=== PATIENT | male | born 1955 | race Caucasian/White ===

== ENCOUNTER 2020-03-12 11:44 | Outpatient (CLI) | payer BC, SELFPAY ==
--- NOTE | 2020-03-12 12:32 | ECG_ITS ---
Measurements Intervals [place] Rate: 58 P: 24 MI: 160 QRS: -11 QRSD: 91 T: 43 QT: 383 QTc: 378 Interpretive Statements SINUS BRADYCARDIA DELAYED PRECORDIAL R/S TRANSITION BASELINE ARTIFACT- I, III, AVL BORDERLINE ECG Electronically Signed On 03-12-2020 13:05:01 [employer] MATERIAL[employer] ENGINEER by Shahab Nur D.O.
[2020-03-12 12:54] LABS: Basophils Absolute Auto 0.1 K/mm3 (0.0-0.1); Basophils Percent Auto 1.1 % (0.2-1.2); Eosinophils Absolute Auto 0.2 K/mm3 (0-0.3); Eosinophils Percent Auto 2.8 % (0-4.4); Hematocrit 41.8 % (42.0-52.0); Hemoglobin 13.6 g/dL (14.0-18.0); Immature Granulocyte Absolute 0.02 K/mm3 (0.00-0.031); Immature Granulocyte Percent A 0.4 % (0-0.5); Lymphocytes Absolute Auto 1.51 K/mm3 (0.9-3.2); Lymphocytes Percent Auto 28.3 % (18.3-44.2); Mean Corpuscular HGB Conc 32.5 g/dl (32-36); Mean Corpuscular Hemoglobin 29.2 pg (26-34); Mean Corpuscular Volume 89.9 fl (80-100); Mean Platelet Volume 8.8 fl (7.4-10.4); Monocytes Absolute Auto 0.6 K/mm3 (0.1-0.6); Neutrophils Percent Auto 56.4 % (45.5-73.1); Platelet Count Result 222 k/mm3 (150-375); Red Blood Count 4.65 M/mm3 (4.6-6.20); White Blood Count 5.3 K/mm3 (4.5-10.0)
[2020-03-12 13:07] LABS: Urine Cotinine NEGATIVE
[2020-03-12 13:10] LABS: Hemoglobin A1C 5.5 % (<5.7)
[2020-03-12 13:13] LABS: Albumin Level 4.6 g/dL (3.5-5.1); Estimated Glomerular Filt Rate > 60; Glucose 87 mg/dL (75-110)
== END 2020-03-12 11:45 | disposition home or self-care (01) ==
LOC: ANHSURGERY 11:47
PROVIDERS: PCP Family Medicine; Visit Provider Orthopaedic Surgery
DX: M17.12 Unilateral primary osteoarthritis, left knee (principal); Z01.818 Encounter for other preprocedural examination; R94.31 Abnormal electrocardiogram [ECG] [EKG]
CPT/HCPCS: 80307; 82040; 82565; 82947; 83036; 85025; 86850; 86900; 86901; 93005

== ENCOUNTER 2020-06-14 13:45 | Outpatient (CLI) | payer OTHER, SELFPAY ==
[2020-06-14 14:56] LABS: Basophils Percent Auto 0.7 % (0.2-1.2); Eosinophils Absolute Auto 0.1 K/mm3 (0-0.3); Eosinophils Percent Auto 2.3 % (0-4.4); Hematocrit 44.7 % (42.0-52.0); Hemoglobin 14.9 g/dL (14.0-18.0); Immature Granulocyte Absolute 0.01 K/mm3 (0.00-0.031); Immature Granulocyte Percent A 0.2 % (0-0.5); Lymphocytes Absolute Auto 1.49 K/mm3 (0.9-3.2); Lymphocytes Percent Auto 26.8 % (18.3-44.2); Mean Corpuscular HGB Conc 33.3 g/dl (32-36); Mean Corpuscular Hemoglobin 29.3 pg (26-34); Mean Corpuscular Volume 87.8 fl (80-100); Monocytes Absolute Auto 0.7 K/mm3 (0.1-0.6); Monocytes Percent Auto 12.6 % (2.6-8.5); Neutrophils Absolute Auto 3.2 K/mm3 (1.3-6.7); Neutrophils Percent Auto 57.4 % (45.5-73.1); Platelet Count Result 229 k/mm3 (150-375); Red Blood Count 5.09 M/mm3 (4.6-6.20); White Blood Count 5.6 K/mm3 (4.5-10.0)
[2020-06-14 15:00] LABS: Urine Cotinine NEGATIVE
[2020-06-14 15:05] LABS: Albumin Level 4.7 g/dL (3.5-5.1); Estimated Glomerular Filt Rate > 60; Glucose 93 mg/dL (75-110)
[2020-06-14 15:08] LABS: Hemoglobin A1C 5.7 % (<5.7)
== END 2020-06-14 13:46 | disposition home or self-care (01) ==
PROVIDERS: Family Provider Family Medicine; PCP Internal Medicine; Visit Provider Orthopaedic Surgery
DX: Z01.818 Encounter for other preprocedural examination (principal); M17.12 Unilateral primary osteoarthritis, left knee
CPT/HCPCS: 80307; 82040; 82565; 82947; 83036; 85025; 86850; 86900; 86901

== ENCOUNTER → 2020-06-19 01:05 | Outpatient (CLI) | payer OTHER, SELFPAY ==
[2020-06-19 19:48] LABS: SARS-CoV-2 RNA PCR Negative
== END ==
PROVIDERS: Family Provider Family Medicine; PCP Internal Medicine; Visit Provider Orthopaedic Surgery
DX: Z01.812 Encounter for preprocedural laboratory examination (principal); Z20.822 Contact with and (suspected) exposure to COVID-19
CPT/HCPCS: C9803; U0003; U0005

== ENCOUNTER 2020-06-23 00:45 | Day surgery (SDC) | payer OTHER, SELFPAY ==
[2020-03-12 12:14] VITALS: BP 144/88; PULSE 68; RESP 20; TEMP 36.8; O2SAT 99; BMI 36.2
[2020-06-14 13:57] VITALS: BMI 35.9
[2020-06-14 14:33] VITALS: BP 140/88; PULSE 70; RESP 16; TEMP 36.9; O2SAT 100; BMI 35.9
--- NOTE | 2020-06-21 09:23 | PM.IMHP ---
H&P: HPI History of Present Illness Date/Time: 06/21/20 09:23 Chief Complaint: Left knee pain due to advanced primary osteoarthritis Narrative: Franki Gusman is a 65 year old male who presents with a chronic ongoing history of left knee pain. Patient has aching pain with ambulation he has started pain rest pain and night pain. This is due to primary osteoarthritis advanced nature. The patient does have worsening deformity over time with varus deformity, he also notes decreasing range of motion aching and pain worse with activity and somewhat relieved by rest. despite conservative measures including cortisone therapy and anti-inflammatories the patient's symptoms continue. He cannot stand or walk for long periods and is tired of living with his knee. X-rays show advanced primary osteoarthritis left knee joint. The patient has discussed further treatment options in detail with Dr. Molina, he would now like to proceed with a left total knee arthroplasty. Review of Systems Review of Systems: All systems reviewed & are unremarkable except as noted in HPI and below PMFSH Social History Social History Smoking packs per day: 1 Smoking cigarettes per day: 20.0 Years smoked: 16 Smoking pack-years: 16.00 Smoking status: Former smoker Tobacco type: cigarettes Smoking end date: 05/07/85 Additional smoking assessment comments: DENIES ANY FORM OF TOBACCO USE Alcohol intake: current Drinks per week: 2 Substance use: never Spiritual care concerns: No Meds Home Medications and Allergies Home Medications Medication Instructions Recorded Confirmed Type atorvastatin 20 mg PO HS 03/12/20 06/14/20 History carboxymethylcellulose sodium 1 drp OPHTHALMIC (EYE) 4-6XD PRN 03/12/20 06/14/20 History [Refresh Liquigel] cinnamon bark [Cinnamon] 2,000 mg PO DAILY 03/12/20 06/14/20 History coenzyme Q10 [Ultra CoQ10] 100 mg PO DAILY 03/12/20 06/14/20 History diclofenac sodium 75 mg PO BID 03/12/20 06/14/20 History fluorometholone 1 drp OPHTHALMIC (EYE) HS 03/12/20 06/14/20 History latanoprost 1 drp OPHTHALMIC (EYE) HS 03/12/20 06/14/20 History losartan 50 mg PO DAILY 03/12/20 06/14/20 History omega-3 fatty acids-vitamin E 1 cap DAILY 03/12/20 06/14/20 History [Fish Oil] timolol maleate 1 drp OPHTHALMIC (EYE) QAM 03/12/20 06/14/20 History verapamil 90 mg PO Q12H 03/12/20 06/14/20 History Allergies Allergy/AdvReac Type Severity Reaction Status Date / Time amoxicillin [From Augmentin] AdvReac Diarrhea Verified 06/14/20 13:56 clavulanic acid AdvReac Diarrhea Verified 06/14/20 13:56 [From Augmentin] clindamycin AdvReac Diarrhea Verified 06/14/20 13:56 Exam Narrative: Exam Narrative: On exam the patient is noted be a well-developed well-nourished male in no acute distress. He is alert and oriented x3. Normal mood and affect. Hearing and vision intact. HEENT exam within normal limits. Heart regular rate rhythm. Lungs clear auscultation. Abdomen benign. Extremities show the patient's left knee to be painful with manipulation and range of motion. He has a varus deformity with crepitation through the arc of motion. Mild effusion swelling motion is 5 to about 110?. He has tenderness on the joint lines and walks with a limp because of his bilateral knee pain. Neurovascular patient is intact. Strength is 5 5. Hips move well with negative Stinchfield negative MARIA DOLORES. Skin is intact without rashes or lesions. Central nervous system exam within normal limits. Assessment and Plan Additional Plan The patient has severe primary osteoarthritis left knee joint. The patient has discussed risks benefits limitations and alternatives of surgery in great detail with Dr. Molina and has failed conservative measures. The patient would now like to proceed with a left total knee arthroplasty. The patient is scheduled to undergo surgery 06/23/2020 at [facility] w
--- NOTE | 2020-06-22 12:32 | WPDANESEPPF ---
Anes - Initial Pre Proc Eval Procedure: Operation Date: 06/23/20 07:30 Proposed Procedures p Left Total Knee Arthroplasty - Benito Molina MD Date/Time: 06/22/20 12:32 Surgeon: Benito Molina MD Pre Op Diagnosis: OA left knee Patient Data Age: 65 Gender: M Height: 1.7 m Weight: 104.1 kg Last Vital Signs Temp 36.9 C 06/14/20 14:33 Pulse 70 06/14/20 14:33 Resp 16 06/14/20 14:33 BP 140/88 06/14/20 14:33 Pulse Ox 100 06/14/20 14:33 Allergies Allergy/AdvReac Type Severity Reaction Status Date / Time amoxicillin [From Augmentin] AdvReac Mild Diarrhea Verified 06/23/20 06:38 clavulanic acid AdvReac Mild Diarrhea Verified 06/23/20 06:38 [From Augmentin] clindamycin AdvReac Mild Diarrhea Verified 06/23/20 06:38 Home Medications Medication Instructions Recorded Confirmed Type atorvastatin 20 mg PO HS 03/12/20 06/14/20 History carboxymethylcellulose sodium 1 drp OPHTHALMIC (EYE) 4-6XD PRN 03/12/20 06/14/20 History [Refresh Liquigel] cinnamon bark [Cinnamon] 2,000 mg PO DAILY 03/12/20 06/14/20 History coenzyme Q10 [Ultra CoQ10] 100 mg PO DAILY 03/12/20 06/14/20 History diclofenac sodium 75 mg PO BID 03/12/20 06/14/20 History fluorometholone 1 drp OPHTHALMIC (EYE) HS 03/12/20 06/14/20 History latanoprost 1 drp OPHTHALMIC (EYE) HS 03/12/20 06/14/20 History losartan 50 mg PO DAILY 03/12/20 06/14/20 History omega-3 fatty acids-vitamin E 1 cap DAILY 03/12/20 06/14/20 History [Fish Oil] timolol maleate 1 drp OPHTHALMIC (EYE) QAM 03/12/20 06/14/20 History verapamil 90 mg PO Q12H 03/12/20 06/14/20 History Patient hx anesthesia problems: none Family hx anesthesia problems: none PMFSH Past Medical History Medical History (Updated 06/22/20 @ 12:33 by Jonatan Gaines DO) Back pain Glaucoma Hyperlipidemia Hypertension Social History Social History Smoking packs per day: 1 Smoking cigarettes per day: 20.0 Years smoked: 16 Smoking pack-years: 16.00 Smoking status: Former smoker Tobacco type: cigarettes Smoking end date: 05/07/85 Additional smoking assessment comments: DENIES ANY FORM OF TOBACCO USE Alcohol intake: current Drinks per week: 2 Substance use: never Living arrangements: with family Spiritual care concerns: No Anes - Eval Final PreProcedure Day of Procedure 06/22/20 12:32 Patient weight: obese Heart: regular rate and rhythm Lungs: clear to auscultation and normal air movement Airway: Mallampati scale class II Neurological: alert and oriented Last oral intake: >/= 8 hours ASA classification: III Emergent: no Anesthetic plan: proceed Anesthesia type and monitoring: general LMA and standard monitoring Informed Consent: The patient's anesthetic plan and its attendant risks and benefits were discussed with the patient/family/POA. Questions were solicited and answers provided to the satisfaction of the patient/family/POA.
--- NOTE | 2020-06-22 12:33 | WPDANESPNB ---
Anes - Peripheral Nerve Block Date/Time: 06/22/20 12:33 I have discussed with the patient/family/POA the placement of a peripheral nerve block for post-operative pain management, including associated risks, benefits, complications, and side effects. Alternative methods of post-operative analgesia were detailed. Questions were solicited and answers provided to the satisfaction of the patient/family/POA. Time-Out: A pre-procedural Time-Out was completed immediately before starting the procedure and confirmed: Patient Identification, Site, Procedure, Patient Position and the Availability of Requisite Equipment. Clinical Indications: Acute post-operative pain management requested by the operative surgeon. Nerve Block Insertion Note Anes-nerve block: adductor canal left Patient position: supine Skin prep: chlorhexidine Needle: 22 gauge, stimulating, insulated echogenic needle. Needle length: 80 mm Technique: ultrasound Injectate: bupivacaine 0.5% with epi 5 mcg/ml (30cc) Observations: tolerated well Complications: none Procedure start time:: 724 Procedure end time:: 727
[2020-06-23] VITALS (12 sets, daily range): BP systolic 96–152; BP diastolic 62–106; PULSE 57–68; RESP 12–20; TEMP 36.1–36.7; O2SAT 94–100
--- NOTE | ~2020-06-23 | XR_ITS ---
EXAMINATION: XR knee LT 2V DATE: 06/23/2020 09:43 INDICATION: Postoperative evaluation following left total knee arthroplasty. TECHNIQUE: Anteroposterior and lateral views of the left knee were obtained. COMPARISON: None. FINDINGS: Left total knee arthroplasty with patellar resurfacing appears well seated and in near anatomic align ment. No fractures identified. Skin herminio and expected postoperative subcutaneous and intra-artic ular gas. IMPRESSION: 1. Left total knee arthroplasty, negative for postoperative purposes. Reviewed, dictated and finalized at location A. ET HEATER OPERATOR
[2020-06-23] MEDS: ACETAMINOPHEN 500 MG TABLET 1000 MG PO (06:19)
[2020-06-23] MEDS: LACTATED RINGERS 1,000 ML 30 ML IV CONT ×2 (06:30→09:35)
[2020-06-23] MEDS: TRANEXAMIC ACID 1,000MG/ISO100 1,000 MG/100 ML BAG 200 MG IVPB (06:32)
--- NOTE | 2020-06-23 06:56 | SUR.PREOP ---
0620-PT TO BR TO VOID.
--- NOTE | 2020-06-23 07:22 | WPDHPUPDATE1 ---
History and Physical Update Update Date/Time: 06/23/20 07:22 History and Physical has been reviewed, including an updated exam of the patient. There are NO changes in the patient's condition. Risks, benefits, and alternatives have been discussed and questions answered. Patient agrees to proceed with procedure.
[2020-06-23] MEDS: ceFAZolin 2 GM/D5W 50 ML 2 GM/50 ML BAG IVPB ×3 (07:32→23:05)
--- NOTE | 2020-06-23 09:03 | PM.PROC ---
Procedure Note - Detailed Date of procedure: 06/23/20 Pre-op diagnosis: OA left knee Post-op diagnosis: same Procedure performed: [Right] total knee arthroplasty Description of procedure: The patient was brought to the operating room. General anesthetic was administered. Placed on the operating table and sterilely prepped and draped in usual manner. A longitudinal incision was made. Tourniquet inflated to 300 mmHg for a total of [time] minutes. Dissection carried down to the fascia. Medial parapatellar incision was made and the patella subluxated laterally. Patella cut from [25] to [25] mm and sized for a [37] mm button. The tibia cut perpendicular to the long axis and femur cut in 5 degrees of valgus, a [67.5] femur trialed. [75] tibia was felt to fit the best. The soft tissue balanced, hemostasis obtained. All [address], [75] tibia, [67.5] Posterior Stabilized Femur, [37] mm patella, and [12] mm Stabilized Plus poly. Motion was 0-125 degrees with good stablility and flexion and extension. The wound was closed with #2 vicryl, 2-0 Vicryl and herminio. Anesthesia: GETA Surgeon: Benito Molina MD Risk Control Director: Marvin Byrd Estimated blood loss (mL): 200 Drains: No Packing: No Pathology: none sent Complications: No immediate complications Condition: stable Disposition: PACU Findings: arthritis
[2020-06-23] MEDS: fentaNYL CITRATE INJ (*CRX) 100 MCG/2 ML VIAL 25 MCG IV PUSH ×3 (09:54→10:58)
--- NOTE | 2020-06-23 10:19 | SUR.PHASEI ---
1020 sbar faxed floor notified
--- NOTE | 2020-06-23 11:25 | ADMGEN ---
This patient, Franki Gusman, was admitted to 2 Medical Room 260-01. Patient/family oriented to hospital policies and general routines including ID bracelet, bed and alarms, visiting hours, pain management, procedures, bathroom and other care routines, personal items, smoking policy, room service/diet, and visiting hours. Information on how to activate the Rapid Response Team has been discussed. Patient/Family are encouraged to report perceived risks to care and to ask questions if they do not understand what they are told or what they should do.
[2020-06-23] MEDS: SODIUM CHLORIDE 0.9% IV 1,000 ML 125 ML IV CONT (11:30)
[2020-06-23] MEDS: DOCUSATE SODIUM 100 MG CAPSULE PO ×2 (11:40→17:30)
[2020-06-23] MEDS: LOSARTAN POTASSIUM 50 MG TABLET PO (12:42)
[2020-06-23] MEDS: HYDROcodone/acetaminophen (*CRX) 7.5-325 MG TABLET 1 TAB PO ×3 (12:45→21:57)
--- NOTE | 2020-06-23 13:56 | PM.IMCN ---
Assessment and Plan Assessment and plan (1) Status post total right knee replacement: Code(s): Z96.651 - Presence of right artificial knee joint Status: Acute Assessment and Plan: Franki Gusman is a 65 year old male with history of hypertension and hyperlipidemia status post right knee total arthroplasty today, patient states the pain in the right knee is better was able to ambulate with a walker and participated in physical therapy, we have been consulted to manage patient high blood pressure and hyperlipidemia, currently patient has no complaint chest pain shortness of breath palpitation fever or chills. (2) Hypertension: Code(s): I10 - Essential (primary) hypertension Status: Inactive Assessment and Plan: We have resumed patient's home medication patient blood pressure is close to target has no complaint of chest pain (3) Hyperlipidemia: Code(s): E78.5 - Hyperlipidemia, unspecified Status: Inactive Assessment and Plan: Will continue home regimen HPI Data of Consult Consult date: 06/23/20 Requesting Physician: Benito Molina MD Primary Care Provider: Imelda Stephenson, DO Consult Narrative Narrative: Franki Gusman is a 65 year old male with history of hypertension and hyperlipidemia status post right knee total arthroplasty today, patient states the pain in the right knee is better was able to ambulate with a walker and participated in physical therapy, we have been consulted to manage patient high blood pressure and hyperlipidemia, currently patient has no complaint chest pain shortness of breath palpitation fever or chills. Review of Systems Review of Systems: All systems reviewed & are unremarkable except as noted in HPI and below PMFSH Past Medical History Medical History (Updated 06/23/20 @ 14:00 by Rojas Lawson MD) Back pain Glaucoma Hyperlipidemia Hypertension Social History Social History Smoking packs per day: 1 Smoking cigarettes per day: 20.0 Years smoked: 16 Smoking pack-years: 16.00 Smoking status: Former smoker Tobacco type: cigarettes Alcohol intake: current Drinks per week: 2 Substance use: never Living arrangements: with family Gender identity (if verbalized by the patient): Male Sexual Orientation (if Verbalized by the Patient): Straight or Heterosexual Spiritual care concerns: No Meds Home Medications and Allergies Home Medications Medication Instructions Recorded Confirmed Type atorvastatin 20 mg PO HS 03/12/20 06/23/20 History carboxymethylcellulose sodium 1 drp OPHTHALMIC (EYE) 4-6XD PRN 03/12/20 06/23/20 History [Refresh Liquigel] cinnamon bark [Cinnamon] 2,000 mg PO DAILY 03/12/20 06/23/20 History coenzyme Q10 [Ultra CoQ10] 100 mg PO DAILY 03/12/20 06/23/20 History diclofenac sodium 75 mg PO BID 03/12/20 06/23/20 History fluorometholone 1 drp OPHTHALMIC (EYE) HS 03/12/20 06/23/20 History latanoprost 1 drp OPHTHALMIC (EYE) HS 03/12/20 06/23/20 History losartan 50 mg PO DAILY 03/12/20 06/23/20 History omega-3 fatty acids-vitamin E 1 cap DAILY 03/12/20 06/23/20 History [Fish Oil] timolol maleate 1 drp OPHTHALMIC (EYE) QAM 03/12/20 06/23/20 History verapamil 90 mg PO Q12H 03/12/20 06/23/20 History Allergies Allergy/AdvReac Type Severity Reaction Status Date / Time amoxicillin [From Augmentin] AdvReac Mild Diarrhea Verified 06/23/20 11:37 clavulanic acid AdvReac Mild Diarrhea Verified 06/23/20 11:37 [From Augmentin] clindamycin AdvReac Mild Diarrhea Verified 06/23/20 11:37 Vital Signs Vital Signs - 24 hr 06/23/20 06:04 06/23/20 09:40 06/23/20 09:55 Temperature 96.9 F L 98.1 F Pulse Rate 68 65 63 Respiratory Rate 20 14 20 Blood Pressure 145/90 H 152/106 H 102/90 Pulse Oximetry 99 99 100 06/23/20 10:10 06/23/20 10:25 06/23/20 10:40 Temperature Pulse Rate 57 L 67 60 Respiratory Rate 12 14 15 Blood Pressure 1
[2020-06-23] MEDS: RIVAROXABAN 10 MG TABLET PO (17:30)
[2020-06-23] MEDS: FLUOROMETHOLONE 0.1% OP SUSP 5 ML BTL 1 DROP EACH EYE (21:57)
[2020-06-23] MEDS: LATANOPROST 0.005% OP SOLN 2.5 ML BTL 1 DROP EACH EYE (21:58)
[2020-06-23] MEDS: ATORVASTATIN 20 MG TABLET PO (21:59)
[2020-06-23] MEDS: oxyCODONE/ACETAMINOPHEN (*CRX) 5-325 MG TABLET 1 TABLET PO (23:12)
[2020-06-24] MEDS: HYDROcodone/acetaminophen (*CRX) 7.5-325 MG TABLET 1 TAB PO ×4 (01:55→13:07)
[2020-06-24 02:00] VITALS: BP 121/76; PULSE 68; RESP 18; TEMP 36.2; O2SAT 98
[2020-06-24 05:07] VITALS: BP 137/82; PULSE 75; RESP 18; TEMP 36.1; O2SAT 96
[2020-06-24 05:48] LABS: Basophils Percent Auto 0.3 % (0.2-1.2); Eosinophils Absolute Auto 0.1 K/mm3 (0-0.3); Eosinophils Percent Auto 0.4 % (0-4.4); Hematocrit 35.5 % (42.0-52.0); Hemoglobin 11.5 g/dL (14.0-18.0); Immature Granulocyte Absolute 0.05 K/mm3 (0.00-0.031); Immature Granulocyte Percent A 0.4 % (0-0.5); Lymphocytes Percent Auto 16.6 % (18.3-44.2); Mean Corpuscular HGB Conc 32.4 g/dl (32-36); Mean Corpuscular Hemoglobin 28.6 pg (26-34); Mean Corpuscular Volume 88.3 fl (80-100); Mean Platelet Volume 9.1 fl (7.4-10.4); Monocytes Absolute Auto 1.3 K/mm3 (0.1-0.6); Monocytes Percent Auto 11.2 % (2.6-8.5); Neutrophils Absolute Auto 8.2 K/mm3 (1.3-6.7); Neutrophils Percent Auto 71.1 % (45.5-73.1); Platelet Count Result 199 k/mm3 (150-375); Red Blood Count 4.02 M/mm3 (4.6-6.20); Red Cell Distribution Width 14.2 % (11.5-14.5); White Blood Count 11.5 K/mm3 (4.5-10.0)
[2020-06-24 06:05] LABS: Anion Gap 7 mmol/L (8-16); Blood Urea Nitrogen 18 mg/dL (9-20); Calcium 8.5 mg/dL (8.4-10.2); Carbon Dioxide 26 mmol/L (22-30); Chloride 105 mmol/L (98-107); Estimated CRCL calculation 91 ml/min; Estimated Glomerular Filt Rate > 60; Glucose 107 mg/dL (75-110); Sodium 138 mmol/L (137-145)
[2020-06-24] MEDS: ceFAZolin 2 GM/D5W 50 ML 2 GM/50 ML BAG IVPB (06:35)
[2020-06-24] MEDS: oxyCODONE/ACETAMINOPHEN (*CRX) 5-325 MG TABLET 2 TABLET PO (06:45)
--- NOTE | 2020-06-24 07:50 | WPDANESPN ---
Anes - Prog Note Post-Op Date/Time: 06/24/20 07:50 Cardiovascular status: normal Respiratory status: normal Airway patency: baseline Mental status: baseline Post-Op hydration status: normal Vital Signs: Last Vital Signs Temp 36.1 C L 06/24/20 05:07 Pulse 75 06/24/20 05:07 Resp 18 06/24/20 05:07 BP 137/82 06/24/20 05:07 Pulse Ox 96 06/24/20 05:07 Pain Score (VAS): 0 I/O: Intake & Output 06/23/20 06/23/20 06/24/20 15:59 23:59 07:59 Intake Total 1240 1290 500 Output Total 1700 1550 Balance 1240 -410 -1050 Laboratory Tests 06/24/20 05:10 06/24/20 05:10 06/24/20 06/24/20 05:10 05:10 WBC 11.5 H RBC 4.02 L Hgb 11.5 L D Hct 35.5 L MCV 88.3 MCH 28.6 MCHC 32.4 RDW 14.2 Plt Count 199 MPV 9.1 Immature Gran % (Auto) 0.4 Neut % (Auto) 71.1 Lymph % (Auto) 16.6 L [place] % (Auto) 11.2 H Eos % (Auto) 0.4 Baso % (Auto) 0.3 Lymph # (Auto) 1.90 [place] # (Auto) 1.3 H Eos # (Auto) 0.1 Baso # (Auto) 0.0 Abs Immat Gran (auto) 0.05 H Absolute Neuts (auto) 8.2 H Absolute Nucleated RBC 0.0 Nucleated RBC % 0.0 Sodium 138 Potassium 4.0 Chloride 105 Carbon Dioxide 26 Anion Gap 7 L BUN 18 Creatinine 0.80 Estim Creat Clear Calc 91 Estimated GFR > 60 Glucose 107 Calcium 8.5 Post-procedural complaints: none Patient Feedback: Patient satisfied with anesthetic care.
[2020-06-24] MEDS: LOSARTAN POTASSIUM 50 MG TABLET PO (09:24)
[2020-06-24] MEDS: TIMOLOL MALEATE 0.5% OP SOLN 5 ML BOTTLE 1 DROP EACH EYE (09:25)
[2020-06-24] MEDS: DOCUSATE SODIUM 100 MG CAPSULE PO (09:25)
[2020-06-24] MEDS: CALCIUM CARBONATE (TUMS) 500 MG (200 MG ELEMENTAL) PO (09:39)
[2020-06-24 10:00] VITALS: BP 115/79; PULSE 83; RESP 20; TEMP 36.6; O2SAT 99
--- NOTE | 2020-06-24 11:25 | PC.NURSE ---
On 06/24/20, the student, [Cherrie Gonzalez ], provided care and [facility]. I have reviewed the student's documentation and agree with the findings.
--- NOTE | 2020-06-24 12:04 | PM.PNORT ---
Progress Note: A&P Additional Plan Patient status post left total knee arthroplasty postop day 1, doing well patient is deemed stable for discharge home patient voiced understanding agrees above plan. See discharge instructions. Subjective Subjective Date/Time Seen: 06/24/20 12:04 patient is doing well postop day 1 status post left total knee arthroplasty, pain is well controlled any participated in physical therapy well. Vital signs are stable he is afebrile neurovascular is intact wound is clean and dry calves are benign. The patient is now deemed stable for discharge home. Review of Systems Review of Systems: All systems reviewed & are unremarkable except as noted in HPI and below Exam Narrative: Exam Narrative: Vital signs stable, afebrile, neurovascular the patient is intact, wound is clean and dry left knee. Calves are benign. Patient tolerating physical therapy well. Objective Data Vital Signs Vital Signs: Vital Signs - 24 hr 06/23/20 14:00 06/23/20 18:00 06/23/20 21:17 Temperature 36.2 C L 36.2 C L Pulse Rate 62 62 Respiratory Rate 20 20 Blood Pressure 114/75 96/63 L Pulse Oximetry 95 97 97 06/23/20 22:28 06/24/20 02:00 06/24/20 05:07 Temperature 36.2 C L 36.2 C L 36.1 C L Pulse Rate 65 68 75 Respiratory Rate 16 18 18 Blood Pressure 131/62 121/76 137/82 Pulse Oximetry 97 98 96 06/24/20 10:00 Temperature 36.6 C Pulse Rate 83 Respiratory Rate 20 Blood Pressure 115/79 Pulse Oximetry 99 Intake/Output Intake/Output: Intake & Output 06/21/20 06/22/20 06/23/20 06/24/20 23:59 23:59 23:59 23:59 Intake Total 2630 740 Output Total 1700 1550 Balance 930 -810 Meds/Results Medications: Active Medications Generic Name Dose Route Start Last Admin Trade Name Freq PRN Reason Stop Dose Admin Hydrocodone Bitart/Acetaminophen 1 tab 06/23/20 13:00 06/24/20 09:24 Hydrocodone/Acetaminophen (*Crx) 7.5-325 Mg Tablet PO 1 tab Q4HR LEO Administration Artificial Tears 1 drop 06/23/20 07:25 Artificial Tears Op Soln 15 Ml Bottle EACH EYE Q4H PRN Dry Eyes Atorvastatin Calcium 20 mg 06/23/20 21:00 06/23/20 21:59 Atorvastatin 20 Mg Tablet PO 20 mg HS LEO Administration Calcium Carbonate 200 mg 06/24/20 09:08 06/24/20 09:39 Calcium Carbonate (Tums) 500 Mg (200 Mg Elemental) PO 200 mg Q6H PRN Administration Indigestion Cyclobenzaprine HCl 10 mg 06/23/20 07:22 Cyclobenzaprine Hcl 10 Mg Tablet PO Q8H PRN Spasms Diphenhydramine HCl 25 mg 06/23/20 07:22 Diphenhydramine Hcl Inj 50 Mg/Ml Vial IV PUSH Q6H PRN Itching Docusate Sodium 100 mg 06/23/20 09:00 06/24/20 09:25 Docusate Sodium 100 Mg Capsule PO 100 mg BID LEO Administration Fluorometholone 1 drop 06/23/20 21:00 06/23/20 21:57 Fluorometholone 0.1% Op Susp 5 Ml Btl EACH EYE 1 drop HS LEO Administration Latanoprost 1 drop 06/23/20 21:00 06/23/20 21:58 Latanoprost 0.005% Op Soln 2.5 Ml Btl EACH EYE 1 drop HS LEO Administration Losartan Potassium 50 mg 06/23/20 09:00 06/24/20 09:24 Losartan Potassium 50 Mg Tablet PO 50 mg DAILY LEO Administration Naloxone HCl 0.1 mg 06/23/20 07:22 Naloxone Hcl 0.4 Mg/Ml Vial IV PUSH Q2M PRN Opiate Reversal Ondansetron HCl 4 mg 06/23/20 07:22 Ondansetron Inj 4 Mg/2 Ml Vial IV PUSH Q4H PRN Nausea And Vomiting Oxycodone/Acetaminophen 1 tablet 06/23/20 07:22 06/23/20 23:12 Oxycodone/Acetaminophen (*Crx) 5-325 Mg Tablet PO 1 tablet Q4H PRN Administration Pain Rated 4-6 Oxycodone/Acetaminophen 2 tablet 06/23/20 07:22 06/24/20 06:45 Oxycodone/Acetaminophen (*Crx) 5-325 Mg Tablet PO 2 tablet Q6H PRN Administration Pain Rated 7-10 Rivaroxaban 10 mg 06/23/20 18:00 06/23/20 17:30 Rivaroxaban 10 Mg Tablet PO 07/04/20 17:01 10 mg DAILY@17 LEO Administration Timolol Maleate 1 drop 06/23/20 09:00 06/24/20 09:25
--- NOTE | 2020-06-24 12:29 | PM.DS ---
DS: Admitting Diagnosis Admitting Diagnosis Admitting Diagnosis: severe primary osteoarthritis left knee joint, discharge diagnosis same, status post left total knee arthroplasty DS: Summary Hospital Course Hospital Course: Patient was admitted overnight status post left total knee arthroplasty. He did well without significant postoperative complaints or problems. Pain is well controlled tolerated physical therapy well. Tolerated diet well. See discharge orders. Time Spent with Patient Time attestation: Total time spent providing and/or coordinating discharge services: Exam Narrative: Exam Narrative: vital signs stable, afebrile, neurovascular the patient is intact. Wound clean and dry. Calves are benign. Patient is alert and oriented x3. Pain is well controlled. Patient tolerated physical therapy well ambulated with a walker weight-bearing as tolerated left lower extremity. Doing well postop day 1 without significant postoperative complaints. DS: Data Data Completed and Pending Labs on day of discharge: Labs from last 24 hours 06/24/20 06/24/20 05:10 05:10 WBC 11.5 H RBC 4.02 L Hgb 11.5 L D Hct 35.5 L MCV 88.3 MCH 28.6 MCHC 32.4 RDW 14.2 Plt Count 199 MPV 9.1 Immature Gran % (Auto) 0.4 Neut % (Auto) 71.1 Lymph % (Auto) 16.6 L Rains % (Auto) 11.2 H Eos % (Auto) 0.4 Baso % (Auto) 0.3 Lymph # (Auto) 1.90 Rains # (Auto) 1.3 H Eos # (Auto) 0.1 Baso # (Auto) 0.0 Abs Immat Gran (auto) 0.05 H Absolute Neuts (auto) 8.2 H Absolute Nucleated RBC 0.0 Nucleated RBC % 0.0 Sodium 138 Potassium 4.0 Chloride 105 Carbon Dioxide 26 Anion Gap 7 L BUN 18 Creatinine 0.80 Estim Creat Clear Calc 91 Estimated GFR > 60 Glucose 107 Calcium 8.5 Discharge Plan Discharge Patient Disposition: Home, Self-Care Discharge Instructions: Discharge to home in stable condition, general diet. Postop physical therapy beginning early next week for total knee protocol left knee. Patient will be weight-bearing as tolerated left lower extremity with a walker he is instructed to do his physical therapy exercises daily at home as well. Patient will change dressing daily watch for evidence of drainage or infection call the office immediately for any problems difficulties or questions regarding the postop course. Patient will start Xarelto 10 mg daily for a total postop course of 2 weeks , though when this is completed he will start aspirin 325 mg b.i.d. x1 month for DVT prophylaxis. He will also be discharged with [place] 7.5 mg 1-2 tabs every 4-6 hours p.r.n. pain. Patient will follow-up 2 weeks postop for staple removal and wound recheck appointment is already been made. The patient will call [phone] for any problems difficulties or questions. Patient Instructions: Rivaroxaban (By mouth), Joint Replacement Surgery (DC), Knee Replacement (DC) Stand Alone Forms: Avoid NSAIDs, General Discharge Instructions Discharge Medications: New Xarelto 10 mg Tablet 10 mg PO DAILY@17 Qty: 13 RF: 0 hydrocodone-acetaminophen 7.5-325 mg Tablet 1 tablet PO Q4HR Qty: 50 RF: 0 Continued losartan 50 mg Tablet 50 mg PO DAILY RF: 0 atorvastatin 20 mg Tablet 20 mg PO HS RF: 0 verapamil 180 mg Tablet Extended Release 90 mg PO Q12H RF: 0 latanoprost 0.005 % Drops 1 drp OPHTHALMIC (EYE) HS RF: 0 fluorometholone 0.1 % drops,suspension 1 drp ophthalmic (eye) HS RF: 0 timolol maleate 0.5 % Drops 1 drp OPHTHALMIC (EYE) QAM RF: 0 Refresh Liquigel 1 % Drops, Liquid Gel 1 drp OPHTHALMIC (EYE) 4-6XD PRN (Reason: Dry Eyes) RF: 0 Ultra CoQ10 75 mg Capsule 100 mg PO DAILY RF: 0 omega-3 fatty acids-vitamin E 1,000 mg Capsule 1 cap DAILY RF: 0 cinnamon bark [Cinnamon] 500 mg Capsule 2,000 mg PO DAILY RF: 0 Discontinued diclofenac sodium 75 mg Tablet,Delayed Release (Dr/Ec) 75 mg PO BID RF: 0 Quality VTE Pr
--- NOTE | 2020-06-24 13:18 | PM.IMPN ---
Progress Note: A&P Assessment and Plan (1) Status post total right knee replacement: Code(s): Z96.651 - Presence of right artificial knee joint Status: Acute Assessment and Plan: 06/24/20 13:18 Franki Gusman is a 65 year old male with history of hypertension and hyperlipidemia status post right knee total arthroplasty today, patient states the pain in the right knee is better was able to ambulate with a walker and participated in physical therapy, we have been consulted to manage patient high blood pressure and hyperlipidemia, currently patient has no complaint chest pain shortness of breath palpitation fever or chills. 06/24 Franki Gusman is a 65 year old male with history of hypertension and hyperlipidemia status post right knee total arthroplasty on 06/23, patient clinically is doing well participating physical therapy and has no complaint of chest pain, patient was seen by surgery team and patient is being discharged home and will follow-up with his orthopedic surgeon as scheduled (2) Hypertension: Code(s): I10 - Essential (primary) hypertension Status: Inactive Assessment and Plan: We have resumed patient's home medication patient blood pressure is close to target has no complaint of chest pain (3) Hyperlipidemia: Code(s): E78.5 - Hyperlipidemia, unspecified Status: Inactive Assessment and Plan: Will continue home regimen Subjective Date/time seen: 06/24/20 13:18 Franki Gusman is a 65 year old male with history of hypertension and hyperlipidemia status post right knee total arthroplasty today, patient states the pain in the right knee is better was able to ambulate with a walker and participated in physical therapy, we have been consulted to manage patient high blood pressure and hyperlipidemia, currently patient has no complaint chest pain shortness of breath palpitation fever or chills. 06/24 Franki Gusman is a 65 year old male with history of hypertension and hyperlipidemia status post right knee total arthroplasty on 06/23, patient clinically is doing well participating physical therapy and has no complaint of chest pain, patient was seen by surgery team and patient is being discharged home and will follow-up with his orthopedic surgeon as scheduled Review of Systems Review of Systems: All systems reviewed & are unremarkable except as noted in HPI and below Exam Narrative: Exam Narrative: Patient is comfortable, NAD HEENT: eyes are clear and none icteric LUNGS:CTA HEART: RR S1S2 ABD: BS+, Soft and nontender Lower extremities: no edema MS: Right knee surgical wound dressing SKIN: nonjaundiced Neuro: grossly intact. Objective Data Vital Signs Vital Signs: Vital Signs - 24 hr 06/23/20 14:00 06/23/20 18:00 06/23/20 21:17 Temperature 97.2 F L 97.1 F L Pulse Rate 62 62 Respiratory Rate 20 20 Blood Pressure 114/75 96/63 L Pulse Oximetry 95 97 97 06/23/20 22:28 06/24/20 02:00 06/24/20 05:07 Temperature 97.1 F L 97.1 F L 96.9 F L Pulse Rate 65 68 75 Respiratory Rate 16 18 18 Blood Pressure 131/62 121/76 137/82 Pulse Oximetry 97 98 96 06/24/20 10:00 Temperature 97.8 F Pulse Rate 83 Respiratory Rate 20 Blood Pressure 115/79 Pulse Oximetry 99 Intake/Output Intake/Output: Intake & Output 06/21/20 06/22/20 06/23/20 06/24/20 23:59 23:59 23:59 23:59 Intake Total 2630 740 Output Total 1700 1550 Balance 930 -810 Meds/Results Medications: Active Medications Generic Name Dose Route Start Last Admin Trade Name Freq PRN Reason Stop Dose Admin Hydrocodone Bitart/Acetaminophen 1 tab 06/23/20 13:00 06/24/20 13:07 Hydrocodone/Acetaminophen (*Crx) 7.5-325 Mg Tablet PO 1 tab Q4HR LEO Administration Artificial Tears 1 drop 06/23/20 07:25 Artificial Tears Op Soln 15 Ml Bottle EACH EYE Q4H PRN Dry Eyes Atorvastatin Calcium 20 mg 06/23/20 21:00 06/23/20 21:59 Atorvastatin 20 Mg Tablet PO 20 mg HS LEO Adm
== END 2020-06-24 14:00 | disposition home or self-care (01) ==
LOC: ANHSURGERY 05:55 → ANH2MED 11:13
PROVIDERS: PCP Internal Medicine; Visit Provider Orthopaedic Surgery
PROC: (CPT 27447; principal; 2020-06-23 07:30)
DX: M17.11 Unilateral primary osteoarthritis, right knee (principal); G89.18 Other acute postprocedural pain; I10 Essential (primary) hypertension; E78.5 Hyperlipidemia, unspecified; H40.9 Unspecified glaucoma; Z87.891 Personal history of nicotine dependence; E66.9 Obesity, unspecified; Z68.34 Body mass index [BMI] 34.0-34.9, adult; Z51.81 Encounter for therapeutic drug level monitoring; Z79.899 Other long term (current) drug therapy
CPT/HCPCS: 27447; 64447; 36415; 73560; 80048; 80307; 82040; 82565; 82947; 83036; 85025; 86850; 86900; 86901; 97110; 97116; 97161; 97165; 97530; 97535; A9270; C1713; C1776; C9803; J0171; J0690; J1100; J1885; J2250; J2270; J2405; J2704; J2795; J3010; J3370; J7030; J7120; U0003; U0005

== ENCOUNTER 2021-09-29 10:00 | Outpatient (CLI) | payer OTHER, SELFPAY ==
--- NOTE | 2021-09-29 11:32 | ECG_ITS ---
Measurements Intervals [place] Rate: 53 P: 93 ME: 146 QRS: -20 QRSD: 97 T: 49 QT: 409 QTc: 387 Interpretive Statements SINUS BRADYCARDIA DELAYED PRECORDIAL R/S TRANSITION BASELINE ARTIFACT- I, II, III, AVR, AVL, AVF, V1-V6 BORDERLINE ECG Electronically Signed On 09-29-2021 11:49:05 CDT by Shahab Nur D.O.
[2021-09-29 11:59] LABS: Basophils Absolute Auto 0.1 K/mm3 (0.0-0.1); Eosinophils Absolute Auto 0.2 K/mm3 (0-0.3); Eosinophils Percent Auto 2.8 % (0-4.4); Hematocrit 44.9 % (42.0-52.0); Hemoglobin 14.3 g/dL (14.0-18.0); Immature Granulocyte Absolute 0.03 K/mm3 (0.00-0.031); Immature Granulocyte Percent A 0.4 % (0-0.5); Lymphocytes Absolute Auto 1.27 K/mm3 (0.9-3.2); Lymphocytes Percent Auto 17.7 % (18.3-44.2); Mean Corpuscular HGB Conc 31.8 g/dl (32-36); Mean Corpuscular Hemoglobin 28.8 pg (26-34); Mean Corpuscular Volume 90.3 fl (80-100); Mean Platelet Volume 8.9 fl (7.4-10.4); Monocytes Absolute Auto 0.8 K/mm3 (0.1-0.6); Monocytes Percent Auto 10.6 % (2.6-8.5); Neutrophils Absolute Auto 4.8 K/mm3 (1.3-6.7); Neutrophils Percent Auto 67.5 % (45.5-73.1); Platelet Count Result 249 k/mm3 (150-375); Red Blood Count 4.97 M/mm3 (4.6-6.20); Red Cell Distribution Width 14.4 % (11.5-14.5); White Blood Count 7.2 K/mm3 (4.5-10.0)
[2021-09-29 12:08] LABS: Albumin Level 4.9 g/dL (3.5-5.1); Anion Gap 8 mmol/L (8-16); Blood Urea Nitrogen 14 mg/dL (9-20); Calcium 9.5 mg/dL (8.4-10.2); Carbon Dioxide 25 mmol/L (22-30); Chloride 106 mmol/L (98-107); Estimated Glomerular Filt Rate > 60; Glucose 107 mg/dL (65-110); Potassium 4.3 mmol/L (3.4-5.0); Sodium 139 mmol/L (137-145)
[2021-09-29 12:08] LABS: Urine Cotinine NEGATIVE
[2021-09-29 12:11] LABS: Hemoglobin A1C 5.7 % (<5.7)
== END 2021-09-29 10:01 | disposition home or self-care (01) ==
LOC: ANHSURGERY 10:05
PROVIDERS: PCP Internal Medicine; Visit Provider Orthopaedic Surgery
DX: Z01.818 Encounter for other preprocedural examination (principal); M16.12 Unilateral primary osteoarthritis, left hip
CPT/HCPCS: 80048; 80307; 82040; 83036; 85025; 87070; 93005

== ENCOUNTER 2021-10-17 01:53 | Day surgery (SDC) | payer OTHER, SELFPAY ==
[2021-09-29 10:13] VITALS: BMI 37.1
[2021-09-29 10:31] VITALS: BP 156/88; PULSE 60; RESP 18; TEMP 36.8; O2SAT 100
--- NOTE | 2021-09-29 10:33 | PC.NURSE ---
Report to the Outpatient Waiting Room, entrance under the green pavilion located off [facility], at time 0600 on date _10/17/21 . OR Time: _729 . - You and your visitor will be asked a series of questions to screen for COVID 19 for your protection. - Only one visitor is allowed at this time. - The patient visitor is requested to leave or wait in car when not with patient. - A mask is required within the hospital. Patients may have clear liquids (water, carbonated beverages, clear teas, apple juice) until 3 hours prior to surgery with a maximum of 20 ounces. - No food from midnight until time of surgery - Infants may have breast milk until 4 hours before surgery, infant formula 6 hours prior to surgery. - Children will be allowed to drink immediately following surgery. If applicable, please bring a bottle or sippy cup to assist with drinking. Juice, water, soda, and popsicles are readily available. For infants on formula, please bring formula the day of surgery. Pacifiers are allowed. Take the following medications with a SIP of water the morning of surgery: ___EYE DROPS,VERAPAMIL Medications to discontinue per physician __DICLOFENAC 7 DAYS PRE OP AND PT STATES HOLD FISH OIL 7 DAYS PRE OP PER DR SCHWAB Date to take last dose___10/09/21 Please no make-up, nail kiswahili, hairspray, perfume, deodorant, or body powder the day of surgery. No jewelry (including any body piercings) or valuables the day of surgery, leave them at home. Please take a shower or bath the night before, or the morning of, surgery with an antibacterial soap. Wear comfortable, loose fitting clothing. Children are encouraged to wear pajamas. - Jewelry must be removed prior to entering the operating room. Rings and piercings that are not removed may be cut off. - The hospital will not accept responsibility for valuables. - Please leave all valuables, including medications, at home the day of surgery. If you are going home after surgery, a licensed powder truck driver must drive you home. - NO public transportation without another adult. - We recommend that an adult stay with you for 24 hours following discharge. - We also recommend that you do not drive, make important decision, drink alcoholic beverages, or take any drugs that were not prescribed by your health care provider for at least 24 hours after your discharge time. For Pediatric surgeries, we recommend two adults accompany the child home (only one inside the building at this time). Follow any additional instructions given to you from your surgeon. If you or anyone in your household have experienced Covid symptoms in the past week, please notify your surgeon or the nurse liaison at the phone number below for possible testing. VREBAL AND WRITTEN instructions given to _PATIENT and asked if any additional questions and then verbalized understanding. Patient advised to call surgeon office or pre surgery nurse liaison [phone] if any additional questions.
--- NOTE | 2021-10-14 08:52 | PM.IMHP ---
H&P: HPI History of Present Illness Date/Time: 10/14/21 08:52 Chief Complaint: Left hip DJD Narrative: 66-year-old male patient of Dr. Stephenson who presents today for left anterior total arthroplasty. Patient is having symptoms in his left hip for over a year. He has tried physical therapy as well as anti-inflammatories. He has pain on a daily basis at this point. Most the pain is in the anterior groin somewhat in the anterior thigh. Pain is limiting his daily activities. Patient does have severe arthritis in hip and feels at this point he is ready to proceed with total hip arthroplasty rather continue nonsurgical treatment. [facility] Past Medical History Medical History Back pain Glaucoma Hyperlipidemia Hypertension Social History Social History Smoking packs per day: 1 Smoking cigarettes per day: 20.0 Years smoked: 16 Smoking pack-years: 16.00 Smoking status: Former smoker Tobacco type: cigarettes Smoking end date: 05/07/85 Additional smoking assessment comments: DENIES ANY FORM OF TOBACCO USE Alcohol intake: current Drinks per week: 2 Substance use: never Gender identity (if verbalized by the patient): Male Sexual Orientation (if Verbalized by the Patient): Straight or Heterosexual Spiritual care concerns: No Meds Home Medications and Allergies Home Medications Medication Instructions Recorded Confirmed Type atorvastatin 20 mg tablet 20 mg PO HS 03/12/20 09/29/21 History carboxymethylcellulose sodium 1 % 1 drp ophthalmic (eye) 4-6XD PRN 03/12/20 09/29/21 History eye liquid gel drops (Refresh Dry Eyes Liquigel) latanoprost 0.005 % eye drops 1 drp ophthalmic (eye) HS 03/12/20 09/29/21 History losartan 50 mg tablet 50 mg PO DAILY 03/12/20 09/29/21 History omega-3 fatty acids-vitamin E 1 cap PO DAILY 03/12/20 09/29/21 History 1,000 mg capsule timolol maleate 0.5 % eye drops 1 drp ophthalmic (eye) QAM 03/12/20 09/29/21 History verapamil 180 mg tablet,extended 90 mg PO Q12H 03/12/20 09/29/21 History release diclofenac sodium 75 mg 1 tablet PO BID 09/29/21 09/29/21 History tablet,delayed release Allergies Allergy/AdvReac Type Severity Reaction Status Date / Time amoxicillin [From Augmentin] AdvReac Mild Diarrhea Verified 09/29/21 10:13 clavulanic acid AdvReac Mild Diarrhea Verified 09/29/21 10:13 [From Augmentin] clindamycin AdvReac Mild Diarrhea Verified 09/29/21 10:13 Exam Narrative: 66-year-old male alert pleasant. 5 ft 6 231 lb, his BMI is 37.3. He walks with a prominent limp. His left hip range of motion is from 10-75 degrees. Internal rotation to 10?, external rotation 20?. Range of motion causes some anterior groin pain. Stinchfield maneuver causes anterior groin pain as well. He has normal abduction strength lateral position. Minimal tenderness over the greater trochanter. Skin around the hip and groin crease for all normal. No edema in lower extremities. 2+ dorsalis pedis and posterior tib pulse. Normal sensation left lower extremity. Resp: Auscultation: clear to auscultation bilaterally Cardio: Rate: regular rate Rhythm: regular rhythm Assessment and Plan Assessment and plan (1) Hip arthritis: Code(s): M16.10 - Unilateral primary osteoarthritis, unspecified hip Status: Acute Plan 66-year-old male with severe osteoarthritis of the left hip with severe symptoms on a daily basis. Again he feels he is ready to proceed with total arthroplasty. Surgical procedure as well as risks and complications were discussed in detail questions were answered we will proceed. We will plan on using Eliquis with Celebrex postoperatively. Patient will see his primary care doctor pre-surgical clearance. He will stop his diclofenac and any other aspirin ibuprofen products 1 week prior to surgery. Nasal swab was negative. Chem pane
--- NOTE | 2021-10-14 12:21 | WPDANESEPPF ---
Anes - Initial Pre Proc Eval Procedure: Operation Date: 10/17/21 07:30 Proposed Procedures p Left Total Hip Arthroplasty, Anterior Approach - Adam Brunner MD Date/Time: 10/14/21 12:21 Surgeon: Adam Brunner MD Pre Op Diagnosis: OA left hip Patient Data Age: 66 Gender: M Height: 1.68 m Weight: 104.4 kg Last Vital Signs Temp 98.3 F 09/29/21 10:31 Pulse 60 09/29/21 10:31 Resp 18 09/29/21 10:31 BP 156/88 H 09/29/21 10:31 Pulse Ox 100 09/29/21 10:31 O2 Del Method Room Air 09/29/21 10:31 Allergies Allergy/AdvReac Type Severity Reaction Status Date / Time amoxicillin [From Augmentin] AdvReac Mild Diarrhea Verified 09/29/21 10:13 clavulanic acid AdvReac Mild Diarrhea Verified 09/29/21 10:13 [From Augmentin] clindamycin AdvReac Mild Diarrhea Verified 09/29/21 10:13 Home Medications Medication Instructions Recorded Confirmed Type atorvastatin 20 mg tablet 20 mg PO HS 03/12/20 09/29/21 History carboxymethylcellulose sodium 1 % 1 drp ophthalmic (eye) 4-6XD PRN 03/12/20 09/29/21 History eye liquid gel drops (Refresh Dry Eyes Liquigel) latanoprost 0.005 % eye drops 1 drp ophthalmic (eye) HS 03/12/20 09/29/21 History losartan 50 mg tablet 50 mg PO DAILY 03/12/20 09/29/21 History omega-3 fatty acids-vitamin E 1 cap PO DAILY 03/12/20 09/29/21 History 1,000 mg capsule timolol maleate 0.5 % eye drops 1 drp ophthalmic (eye) QAM 03/12/20 09/29/21 History verapamil 180 mg tablet,extended 90 mg PO Q12H 03/12/20 09/29/21 History release diclofenac sodium 75 mg 1 tablet PO BID 09/29/21 09/29/21 History tablet,delayed release Patient hx anesthesia problems: none Family hx anesthesia problems: none Results Review: All pre-operative results and documents have been reviewed as part of the pre-operative evaluation. [facility] Past Medical History Medical History Back pain Glaucoma Hyperlipidemia Hypertension Social History Social History Smoking packs per day: 1 Smoking cigarettes per day: 20.0 Years smoked: 16 Smoking pack-years: 16.00 Smoking status: Former smoker Tobacco type: cigarettes Alcohol intake: current Drinks per week: 2 Substance use: never Living arrangements: with family Gender identity (if verbalized by the patient): Male Sexual Orientation (if Verbalized by the Patient): Straight or Heterosexual Spiritual care concerns: No Anes - Eval Final PreProcedure Day of Procedure 10/14/21 12:21 Patient weight: obese Heart: regular rate and rhythm Lungs: clear to auscultation Airway: Mallampati scale class III Neurological: alert and oriented Last oral intake: >/= 8 hours ASA classification: III Emergent: no Anesthetic plan: proceed Anesthesia type and monitoring: general ETT and standard monitoring Results Review: All pre-operative results and documents have been reviewed as part of the pre-operative evaluation. Informed Consent: The patient's anesthetic plan and its attendant risks and benefits were discussed with the patient/family/POA. Questions were solicited and answers provided to the satisfaction of the patient/family/POA.
[2021-10-17] VITALS (17 sets, daily range): BP systolic 103–154; BP diastolic 72–98; PULSE 56–84; RESP 13–72; TEMP 36.1–36.5; O2SAT 92–100
--- NOTE | ~2021-10-17 | XR_ITS ---
EXAMINATION: XR hip LT 1V w AP pelvis DATE: 10/17/2021 11:56 INDICATION: Left hip arthroplasty. Postop. TECHNIQUE: An anteroposterior view of the pelvis and single view of left hip were obtained. COMPARISON: None. FINDINGS: There is a total left hip arthroplasty in near-anatomic alignment. No fracture. There is mi ld right hip osteoarthritis. A surgical drain is noted. IMPRESSION: 1. Total left hip arthroplasty in near-anatomic alignment. Reviewed, dictated and finalized at location B.
--- NOTE | ~2021-10-17 | XR_ITS ---
EXAMINATION: XR surgery orthopedic DATE: 10/17/2021 11:56 INDICATION: Intraoperative evaluation during left total hip arthroplasty TECHNIQUE: Frontal view of the left hip was obtained. COMPARISON: None. FINDINGS: Intraoperative image during a left total hip arthroplasty demonstrate placement of a noncemented left total hip arthroplasty which appears in near-anatomic alignment on the single frontal projection. No fractures in the visualized bones. Expected soft tissue gas at the operative bed. IMPRESSION: 1. Expected appearance during left total hip arthroplasty. Reviewed, dictated and finalized at location A.
[2021-10-17] MEDS: ACETAMINOPHEN 500 MG TABLET 1000 MG PO ×3 (06:31→23:31)
[2021-10-17] MEDS: TRANEXAMIC ACID 1,000MG/ISO100 1,000 MG/100 ML BAG 200 MG IVPB (06:45)
[2021-10-17] MEDS: LACTATED RINGERS 1,000 ML 30 ML IV CONT ×2 (06:45→12:00)
--- NOTE | 2021-10-17 07:15 | WPDHPUPDATE1 ---
History and Physical Update Update Date/Time: 10/17/21 07:15 History and Physical has been reviewed, including an updated exam of the patient. There are NO changes in the patient's condition. Risks, benefits, and alternatives have been discussed and questions answered. Patient agrees to proceed with procedure.
[2021-10-17] MEDS: ceFAZolin 2 GM/D5W 50 ML 2 GM/50 ML BAG IVPB (07:37)
[2021-10-17] MEDS: ceFAZolin SODIUM 1 GM VIAL 3 GM (08:38)
[2021-10-17] MEDS: ceFAZolin SODIUM 1 GM VIAL 2 GM IV PUSH (11:23)
[2021-10-17] MEDS: TRANEXAMIC ACID 1,000 MG/10 ML AMPUL 1000 MG IV PUSH (11:23)
--- NOTE | 2021-10-17 11:46 | W.PM.PROC2 ---
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 Description of Procedure Patient was brought to the operating room and general anesthesia was administered. He received 2 g Ancef weight based vancomycin 1 g of tranexamic acid preoperatively. The boots were placed on the feet with extra padding and [facility] SCDs placed on the calves and operating during the procedure. Left hip prepped draped usual fashion. A 10 cm longitudinal incision was made starting 2.5 cm lateral to the ASIS. Dissection was carried down to the fascia over the tensor fascia laina which was longitudinally incised along its midportion. This was elevated off the anterior 1/2 the TFL muscle interval between TFL and rectus femoris developed. Crossing branches of ascending lateral femoral circumflex vessels were isolated, ligated with suture and and divided. Fat pad was removed capsule was exposed inverted T capsulotomy performed. Femoral neck osteotomy made according to preoperative templating. Femoral neck measured 47 mm diameter. It was severely 1. The acetabulum was exposed. There was bone loss and fragmentation posterior Stephanie and posterior superior laterally. 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 We elected to curette this at this time and we used cancellous bone chips from the femoral neck and femoral head and firmly packed this bone graft into the superior cyst. There were smaller surface cysts along the anterior superior and anterior rim and little bit of fragmentation of the anterior rim as well which was debrided. The limb was externally rotated extended in the interval between the conjoined tendon and piriformis tendon was incised allowing the piriformis to flip. Small portion of the lateral capsular flap was excised. The acetabulum was exposed and we medialized fully with a 44 mm Reamer and reamed up to 49 mm which gave circumferential bone contact at the periphery the 49 mm trial fit properly. We chose the 50 mm pinnacle cup but I could not see that. It remained proud about 4 5 mm therefore we lightly reamed with the 50 Reamer and after repeat irrigation of the component and the acetabulum the 50 shell this time could be seated fully. It was impacted at 40? of abduction and anteversion matching the anatomy such that the anterior rim of the shell was just under the anterior rim of the acetabulum. An excellent Press-Fit was achieved. A single screw was placed into the ilium which obtained excellent purchase. The 32 mm inner diameter polyethylene liner was seated without difficulty. The leg was externally rotated extended with the table hook exposing the proximal femur and the femur was broached to a size 5. We trialed this with the +5 head this seemed appropriate. Neck I was appropriate on leg lengths were equal. We calcar planed and tested the stability of the implant torsional stress and found that there was still play. We broached up to the size 6 and there was still a little bit of play and we broached to a size 7 but I could not seated fully. We used the canal reamers and by using the size 5 and countersinking this a little bit I was able to seat the 7 broach fully. I trialed with the 1.5 head and there was excessive Shuck on trialing and it was felt to be unstable. We looked at the construct under fluoro and we could see that we needed additional offset. Going up and the size put the stem in a slight valgus alignment therefore reducing the offset. Leg lengths were equal however therefore we countersunk th
--- NOTE | 2021-10-17 14:35 | ADMGEN ---
This patient, Franki Gusman, was admitted to Medical Room 256-. Patient/family oriented to hospital policies and general routines including ID bracelet, bed and alarms, visiting hours, pain management, procedures, bathroom and other care routines, personal items, smoking policy, room service/diet, and visiting hours. Information on how to activate the Rapid Response Team has been discussed. Patient/Family are encouraged to report perceived risks to care and to ask questions if they do not understand what they are told or what they should do.
--- NOTE | 2021-10-17 16:59 | PM.IMCN ---
Assessment and Plan Assessment and plan (1) Hip arthritis: Code(s): M16.10 - Unilateral primary osteoarthritis, unspecified hip Status: Acute Assessment and Plan: Franki Gusman is a 66 year old male patient is 66-year-old male with history of hypertension hyperlipidemia reason for consultation, patient with a severe left hip osteoarthritis over 1 year, conservative management was not relieving his pain if seen by orthopedic surgeon and had a left hip total arthroplasty, currently patient is sitting in the is feeling much denies any chest pain shortness of breath or dizziness, complains of pain in the hip, pain management and DVT prophylaxis is deferred to the surgeon, patient is taking verapamil 90 mg b.i.d. for hypertension currently his blood pressure is soft most likely secondary to anesthesia and pain medication, patient is taking Lipitor for hyperlipidemia, patient remains clinically stable will continue to monitor and will follow the patient with you we thank you for the consultation will monitor the patient (2) Hyperlipidemia: Code(s): E78.5 - Hyperlipidemia, unspecified Status: Acute Assessment and Plan: will continue Lipitor (3) Hypertension: Code(s): I10 - Essential (primary) hypertension Status: Acute Assessment and Plan: patient states taking verapamil 90 mg b.i.d. his blood pressure is soft today most likely secondary to anesthesia and pain medication, no complaint of chest pain will continue to monitor HPI Data of Consult Consult date: 10/17/21 Requesting Physician: Adam Brunner MD Primary Care Provider: Imelda Stephenson, DO Consult Narrative Narrative: Franki Gusman is a 66 year old male patient is 66-year-old male with history of hypertension hyperlipidemia reason for consultation, patient with a severe left hip osteoarthritis over 1 year, conservative management was not relieving his pain if seen by orthopedic surgeon and had a left hip total arthroplasty, currently patient is sitting in the is feeling much denies any chest pain shortness of breath or dizziness, complains of pain in the hip, pain management and DVT prophylaxis is deferred to the surgeon, patient is taking verapamil 90 mg b.i.d. for hypertension currently his blood pressure is soft most likely secondary to anesthesia and pain medication, patient is taking Lipitor for hyperlipidemia, patient remains clinically stable will continue to monitor and will follow the patient with you we thank you for the consultation will monitor the patient Review of Systems Review of Systems: All systems reviewed & are unremarkable except as noted in HPI and below PMFSH Past Medical History Medical History (Updated 10/17/21 @ 17:12 by Rojas Lawson MD) Back pain Glaucoma Hyperlipidemia Hypertension Social History Social History Smoking packs per day: 1 Smoking cigarettes per day: 20.0 Years smoked: 16 Smoking pack-years: 16.00 Smoking status: Former smoker Second hand tobacco smoke exposure: Yes Alcohol intake: current Drinks per week: 2 Substance use: never Living arrangements: with family Gender identity (if verbalized by the patient): Male Sexual Orientation (if Verbalized by the Patient): Straight or Heterosexual Spiritual care concerns: No Meds Home Medications and Allergies Home Medications Medication Instructions Recorded Confirmed Type atorvastatin 20 mg tablet 20 mg PO HS 03/12/20 10/17/21 History carboxymethylcellulose sodium 1 % 1 drp ophthalmic (eye) 4-6XD PRN 03/12/20 10/17/21 History eye liquid gel drops (Refresh Dry Eyes Liquigel) latanoprost 0.005 % eye drops 1 drp ophthalmic (eye) HS 03/12/20 10/17/21 History losartan 50 mg tablet 50 mg PO DAILY 03/12/20 10/17/21 History omega-3 fatty acids-vitamin E 1 cap PO DAILY 03/12/20 10/17/21 History 1,000 mg capsule timolol maleate
[2021-10-17] MEDS: SENNA/DOCUSATE SODIUM TABLET 2 TAB PO (17:49)
[2021-10-17] MEDS: oxyCODONE HCL (*CRX) 5 MG TAB IR PO ×2 (17:54→20:29)
[2021-10-17] MEDS: ATORVASTATIN 20 MG TABLET PO (20:29)
[2021-10-17] MEDS: LATANOPROST 0.005% OP SOLN 2.5 ML BTL 1 DROP EACH EYE (20:29)
[2021-10-17] MEDS: FAMOTIDINE 20 MG TABLET PO (20:29)
[2021-10-18] MEDS: oxyCODONE HCL (*CRX) 5 MG TAB IR PO ×6 (00:11→21:12)
[2021-10-18 01:09] VITALS: BP 142/88; PULSE 79; RESP 20; TEMP 36.7; O2SAT 98
[2021-10-18 04:35] VITALS: BP 129/82; PULSE 88; RESP 21; TEMP 37.1; O2SAT 100
[2021-10-18 05:50] LABS: Basophils Percent Auto 0.4 % (0.2-1.2); Eosinophils Percent Auto 0.2 % (0-4.4); Hematocrit 34.3 % (42.0-52.0); Hemoglobin 11.2 g/dL (14.0-18.0); Immature Granulocyte Absolute 0.05 K/mm3 (0.00-0.031); Immature Granulocyte Percent A 0.5 % (0-0.5); Lymphocytes Absolute Auto 0.97 K/mm3 (0.9-3.2); Lymphocytes Percent Auto 9.4 % (18.3-44.2); Mean Corpuscular HGB Conc 32.7 g/dl (32-36); Mean Corpuscular Hemoglobin 28.9 pg (26-34); Mean Corpuscular Volume 88.6 fl (80-100); Mean Platelet Volume 8.8 fl (7.4-10.4); Monocytes Absolute Auto 1.2 K/mm3 (0.1-0.6); Monocytes Percent Auto 11.3 % (2.6-8.5); Neutrophils Absolute Auto 8.1 K/mm3 (1.3-6.7); Neutrophils Percent Auto 78.2 % (45.5-73.1); Platelet Count Result 198 k/mm3 (150-375); Red Blood Count 3.87 M/mm3 (4.6-6.20); Red Cell Distribution Width 14.1 % (11.5-14.5); White Blood Count 10.4 K/mm3 (4.5-10.0)
[2021-10-18 06:00] LABS: Anion Gap 7 mmol/L (8-16); Blood Urea Nitrogen 12 mg/dL (9-20); Calcium 8.1 mg/dL (8.4-10.2); Carbon Dioxide 22 mmol/L (22-30); Chloride 100 mmol/L (98-107); Estimated CRCL calculation 114 ml/min; Estimated Glomerular Filt Rate > 60; Glucose 137 mg/dL (65-110); Sodium 129 mmol/L (137-145)
--- NOTE | 2021-10-18 06:17 | PM.PNORT ---
Subjective Subjective Date/Time Seen: 10/18/21 06:17 postop day 1 patient is alert. Afebrile vital signs are stable. His drain is out this morning. He was appears to be walking in the room with physical therapy. He is up to the restroom overnight multiple times. Overall patient is doing well. Pain is well controlled. Morning labs are noted. Sodium is low at 129 but patient is asymptomatic from this. Neurovascularly he is intact. Will plan to have patient work with physical therapy this morning if he is comfortable we will discharge him home later this morning. If he feels he wishes to have additional physical therapy he will do afternoon therapy and be discharged after that. Objective Data Vital Signs Vital Signs: Vital Signs - 24 hr 10/17/21 06:30 10/17/21 12:00 10/17/21 12:15 Temperature 36.1 C L 36.4 C Pulse Rate 70 71 58 L Respiratory Rate 18 21 H 19 Blood Pressure 154/90 H 138/98 H 146/95 H Pulse Oximetry 98 100 97 Oxygen Delivery Room Air Simple Face Mask Simple Face Mask Oxygen Flow Rate 6 6 10/17/21 12:30 10/17/21 12:45 10/17/21 13:00 Temperature Pulse Rate 56 L 64 63 Respiratory Rate 21 H 13 20 Blood Pressure 129/81 133/74 126/86 Pulse Oximetry 93 92 94 Oxygen Delivery Room Air Room Air Room Air Oxygen Flow Rate 10/17/21 13:15 10/17/21 13:30 10/17/21 13:45 Temperature Pulse Rate 59 L 58 L 65 Respiratory Rate 20 20 20 Blood Pressure 122/82 123/78 109/86 Pulse Oximetry 94 94 97 Oxygen Delivery Room Air Room Air Room Air Oxygen Flow Rate 10/17/21 14:00 10/17/21 14:20 10/17/21 15:57 Temperature Pulse Rate 64 67 Respiratory Rate 18 20 Blood Pressure 118/78 116/78 Pulse Oximetry 95 97 Oxygen Delivery Room Air Room Air Room Air Oxygen Flow Rate 10/17/21 14:50 10/17/21 15:05 10/17/21 15:35 Temperature 36.5 C 36.3 C L 36.3 C L Pulse Rate 63 61 68 Respiratory Rate 14 72 H 20 Blood Pressure 114/76 121/76 130/76 Pulse Oximetry 95 94 95 Oxygen Delivery Oxygen Flow Rate 10/17/21 16:35 10/17/21 16:00 10/17/21 20:09 Temperature 36.2 C L 36.3 C L Pulse Rate 84 74 Respiratory Rate 18 16 Blood Pressure 132/79 137/80 Pulse Oximetry 98 94 Oxygen Delivery Room Air Oxygen Flow Rate 10/17/21 22:00 10/18/21 01:09 Temperature 36.3 C L 36.7 C Pulse Rate 74 79 Respiratory Rate 16 20 Blood Pressure 137/80 142/88 H Pulse Oximetry 94 98 Oxygen Delivery Oxygen Flow Rate Intake/Output Intake/Output: Intake & Output 10/15/21 10/16/21 10/17/21 10/18/21 23:59 23:59 23:59 23:59 Intake Total 3290 50 Output Total 675 Balance 2615 50 Meds/Results Medications: Active Medications Generic Name Dose Route Start Last Admin Trade Name Freq PRN Reason Stop Dose Admin Acetaminophen 1,000 mg 10/17/21 18:00 10/17/21 23:31 Acetaminophen 500 Mg Tablet PO 1,000 mg Q6HR LEO Administration Al Hydrox/Mg Hydrox/Simethicone 30 ml 10/17/21 14:24 Mag Hydrox/Al Hydrox/Simeth 30 Ml Udc PO Q6H PRN Indigestion Apixaban 2.5 mg 10/18/21 09:00 Apixaban 2.5 Mg Tablet PO 11/21/21 21:01 Q12HR LEO Artificial Tears 1 drop 10/17/21 15:02 Artificial Tears Ophth Soln 15 Ml Bottle EACH EYE Q4H PRN Dry Eye(s) Atorvastatin Calcium 20 mg 10/17/21 21:00 10/17/21 20:29 Atorvastatin 20 Mg Tablet PO 20 mg HS LEO Administration Celecoxib 200 mg 10/18/21 09:00 Celecoxib 200 Mg Capsule PO DAILY LEO Cephalexin HCl 500 mg 10/18/21 12:00 Cephalexin 500 Mg Capsule PO Q6HR LEO Famotidine 20 mg 10/17/21 21:00 10/17/21 20:29 Famotidine 20 Mg Tablet PO 20 mg Q12HR LEO Administration Hydroxyzine HCl 50 mg 10/17/21 14:24 Hydroxyzine Hcl 25 Mg Tablet PO Q4H PRN Itching Vancomycin HCl 1,000 mg in 250 mls @ 250 mls/hr 10/17/21 19:00 10/17/21 20:35 Vancomycin 1,000 Mg/D5w 250 Ml IVPB 10/18/21 07:59 Infused Q12H LEO Infusion Cefazolin Sodium 1 g
[2021-10-18] MEDS: ACETAMINOPHEN 500 MG TABLET 1000 MG PO ×4 (06:20→23:46)
--- NOTE | 2021-10-18 06:22 | PM.DS ---
DS: Admitting Diagnosis Discharge Date 10/18 Admitting Diagnosis Left hip DJD DS: Discharge Diagnosis Discharge Diagnosis Plan 66-year-old male who underwent left anterior total arthroplasty on 10/17. Underwent the procedure without complications. Postoperatively he has been afebrile vital signs are stable. He was up walking with physical therapy the day of surgery and up multiple times overnight to the restroom and doing well. His drain is out. He is weight-bearing as tolerated but we are having patient use a walker for the 1st month to consolidate his activities. Time of surgery his acetabulum bone was a little soft. He is on Eliquis for DVT prophylaxis. His pain is controlled with scheduled Tylenol as well as oxycodone 5 mg. He is also on Celebrex for the 1st 10 days for heterotopic bone formation prophylaxis. His incision is dry. Neurovascularly he is intact. He discharged home on 10/18. He is also going home on a 2 week course of Keflex to his increased BMI. He is also going home on Senokot and MiraLax. Patient was advised questions concerns once he goes home he is to call the office otherwise we will see him at his appointment date. DS: Summary Hospital Course Hospital Course: Stable Time Spent with Patient Time attestation: Total time spent providing and/or coordinating discharge services: DS: Data Data Completed and Pending Labs on day of discharge: Labs from last 24 hours 10/18/21 10/18/21 10/17/21 05:33 05:33 06:34 WBC 10.4 H RBC 3.87 L Hgb 11.2 L D Hct 34.3 L MCV 88.6 MCH 28.9 MCHC 32.7 RDW 14.1 Plt Count 198 MPV 8.8 Immature Gran % (Auto) 0.5 Neut % (Auto) 78.2 H Lymph % (Auto) 9.4 L [place] % (Auto) 11.3 H Eos % (Auto) 0.2 Baso % (Auto) 0.4 Lymph # (Auto) 0.97 [place] # (Auto) 1.2 H Eos # (Auto) 0.0 Baso # (Auto) 0.0 Abs Immat Gran (auto) 0.05 H Absolute Neuts (auto) 8.1 H Absolute Nucleated RBC 0.0 Nucleated RBC % 0.0 Sodium 129 L Potassium 4.0 Chloride 100 Carbon Dioxide 22 Anion Gap 7 L BUN 12 Creatinine 0.60 L Estim Creat Clear Calc 114 Estimated GFR > 60 Glucose 137 H Calcium 8.1 L Blood Type O Positive Antibody Screen Negative Discharge Plan Discharge Patient Disposition: Home, Self-Care Discharge Instructions: ADAM BRUNNER M.D [facility], [place] [id number] [place] [address] POST-OPERATIVE DISCHARGE INSTRUCTIONS ANTERIOR TOTAL HIP ARTHROPLASTY 1. Move toes/feet up and down every hour while awake. 2. Be up walking every hour while awake. 3. Use cane in hand opposite of side of hip surgery or walker as comfort allows. Avoid sitting in a chair unless eating, receiving visitors or using the toilet. 4. When resting, lie on back with leg elevated above heart to minimize swelling. Significant swelling could indicate a blood clot and if this occurs, call the office (or go to the ER) to have a venous ultrasound performed. 5. Wound Care: Keep dry sponge on wound for 2 weeks. Use minimal tape. 6. Use walker for 1 month 7. May shower with dressing off. Stand Alone Forms: General Discharge Instructions Follow-up/Referrals: Adam Brunner MD [Physician] - Keep Reg. Scheduled Appt. Discharge Medications: New celecoxib [Celebrex] 200 mg Capsule 200 mg PO DAILY Qty: 10 0RF polyethylene glycol 3350 [Miralax] 17 gram Powder In Packet 17 g PO QAM Qty: 30 0RF acetaminophen 500 mg Tablet 1,000 mg PO Q6HR Qty: 90 0RF cephalexin 500 mg Capsule 500 mg PO Q6HR Qty: 48 0RF oxycodone 5 mg Tablet 5 mg PO Q4HR Qty: 40 0RF Eliquis 2.5 mg Tablet 2.5 mg PO Q12HR Qty: 69 0RF Continued losartan 50 mg Tablet 50 mg PO DAILY atorvastatin 20 mg Tablet 20 mg PO HS verapamil 180 mg Tablet Extended Release 90 mg PO Q12H latanoprost 0.005 %
[2021-10-18] MEDS: methylPREDNISolone ACETATE 80 MG/ML VIAL IM (06:53)
[2021-10-18] MEDS: LIDOCAINE HCL 1% LOCAL INJ 10 ML VIAL 3 ML INFILTRATE (06:53)
[2021-10-18] MEDS: SENNA/DOCUSATE SODIUM TABLET 2 TAB PO ×2 (08:43→17:17)
[2021-10-18] MEDS: FAMOTIDINE 20 MG TABLET PO ×2 (08:44→21:12)
[2021-10-18] MEDS: LOSARTAN POTASSIUM 50 MG TABLET PO (08:44)
[2021-10-18] MEDS: CELECOXIB 200 MG CAPSULE PO (08:45)
[2021-10-18] MEDS: APIXABAN 2.5 MG TABLET PO ×2 (08:45→21:12)
[2021-10-18] MEDS: polyethylene glycoL 3350 17 GM POWD.PACK PO (08:45)
[2021-10-18] MEDS: TIMOLOL MALEATE 0.5% OP SOLN 5 ML BOTTLE 1 DROP EACH EYE (08:46)
--- NOTE | 2021-10-18 08:50 | P.PNAN_ITS ---
Anes - Prog Note Post-Op Date/Time: 10/18/21 08:50 Cardiovascular status: normal Respiratory status: normal Airway patency: baseline Mental status: baseline Post-Op hydration status: normal Vital Signs: Last Vital Signs Temp 37.1 C 10/18/21 04:35 Pulse 88 10/18/21 04:35 Resp 21 H 10/18/21 04:35 BP 129/82 10/18/21 04:35 Pulse Ox 100 10/18/21 04:35 O2 Del Method Room Air 10/17/21 16:00 O2 Flow Rate 6 10/17/21 12:15 Pain Score (VAS): 3 I/O: Intake & Output 10/17/21 10/18/21 10/18/21 23:59 07:59 15:59 Intake Total 1440 400 240 Output Total 675 900 Balance 765 -500 240 Laboratory Tests 10/18/21 05:33 10/18/21 05:33 10/18/21 10/18/21 05:33 05:33 WBC 10.4 H RBC 3.87 L Hgb 11.2 L D Hct 34.3 L MCV 88.6 MCH 28.9 MCHC 32.7 RDW 14.1 Plt Count 198 MPV 8.8 Immature Gran % (Auto) 0.5 Neut % (Auto) 78.2 H Lymph % (Auto) 9.4 L [place] % (Auto) 11.3 H Eos % (Auto) 0.2 Baso % (Auto) 0.4 Lymph # (Auto) 0.97 [place] # (Auto) 1.2 H Eos # (Auto) 0.0 Baso # (Auto) 0.0 Abs Immat Gran (auto) 0.05 H Absolute Neuts (auto) 8.1 H Absolute Nucleated RBC 0.0 Nucleated RBC % 0.0 Sodium 129 L Potassium 4.0 Chloride 100 Carbon Dioxide 22 Anion Gap 7 L BUN 12 Creatinine 0.60 L Estim Creat Clear Calc 114 Estimated GFR > 60 Glucose 137 H Calcium 8.1 L Post-procedural complaints: none Patient Feedback: Patient satisfied with anesthetic care.
[2021-10-18 10:00] VITALS: BP 120/72; PULSE 82; RESP 18; TEMP 36.4; O2SAT 97
[2021-10-18 11:07] LABS: Anion Gap 6 mmol/L (8-16); Blood Urea Nitrogen 12 mg/dL (9-20); Calcium 8.1 mg/dL (8.4-10.2); Carbon Dioxide 23 mmol/L (22-30); Chloride 99 mmol/L (98-107); Estimated CRCL calculation 99 ml/min; Estimated Glomerular Filt Rate > 60; Glucose 167 mg/dL (65-110); Potassium 3.9 mmol/L (3.4-5.0); Sodium 128 mmol/L (137-145)
[2021-10-18] MEDS: CEPHALEXIN 500 MG CAPSULE PO ×3 (12:03→23:47)
--- NOTE | 2021-10-18 15:23 | PM.IMPN ---
Progress Note: A&P Assessment and Plan (1) Hip arthritis: Code(s): M16.10 - Unilateral primary osteoarthritis, unspecified hip Status: Acute Assessment and Plan: Franki Gusman is a 66 year old male patient is 66-year-old male with history of hypertension hyperlipidemia reason for consultation, patient with a severe left hip osteoarthritis over 1 year, conservative management was not relieving his pain if seen by orthopedic surgeon and had a left hip total arthroplasty, currently patient is sitting in the is feeling much denies any chest pain shortness of breath or dizziness, complains of pain in the hip, pain management and DVT prophylaxis is deferred to the surgeon, patient is taking verapamil 90 mg b.i.d. for hypertension currently his blood pressure is soft most likely secondary to anesthesia and pain medication, patient is taking Lipitor for hyperlipidemia, patient remains clinically stable will continue to monitor and will follow the patient with you we thank you for the consultation will monitor the patient. 10/18/2021 interval history: patient status post left hip total arthroplasty postop day 1, patient remains clinically stable has no complaint of chest pain shortness of breath or dizziness, was able to participate in physical therapy, however patient's sodium has dropped 128 today from 139 checked on 09/29/2021 patient has no sinus symptoms hyponatremia, his blood sugar is slightly elevated and his hemoglobin A1c is 5.7, patient states he has been drinking more water while in hospital, we will place patient fluid restriction and monitor his sodium tomorrow remains close to normal will discharge the patient, will continue physical therapy while in the hospital. (2) Hyperlipidemia: Code(s): E78.5 - Hyperlipidemia, unspecified Status: Acute Assessment and Plan: will continue Lipitor (3) Hypertension: Code(s): I10 - Essential (primary) hypertension Status: Acute Assessment and Plan: patient states taking verapamil 90 mg b.i.d. his blood pressure is soft today most likely secondary to anesthesia and pain medication, no complaint of chest pain will continue to monitor Subjective Date/time seen: 10/18/21 15:23 Franki Gusman is a 66 year old male patient is 66-year-old male with history of hypertension hyperlipidemia reason for consultation, patient with a severe left hip osteoarthritis over 1 year, conservative management was not relieving his pain if seen by orthopedic surgeon and had a left hip total arthroplasty, currently patient is sitting in the is feeling much denies any chest pain shortness of breath or dizziness, complains of pain in the hip, pain management and DVT prophylaxis is deferred to the surgeon, patient is taking verapamil 90 mg b.i.d. for hypertension currently his blood pressure is soft most likely secondary to anesthesia and pain medication, patient is taking Lipitor for hyperlipidemia, patient remains clinically stable will continue to monitor and will follow the patient with you we thank you for the consultation will monitor the patient 10/18/2021 interval history: patient status post left hip total arthroplasty postop day 1, patient remains clinically stable has no complaint of chest pain shortness of breath or dizziness, was able to participate in physical therapy, however patient's sodium has dropped 128 today from 139 checked on 09/29/2021 patient has no sinus symptoms hyponatremia, his blood sugar is slightly elevated and his hemoglobin A1c is 5.7, patient states he has been drinking more water while in hospital, we will place patient fluid restriction and monitor his sodium tomorrow remains close to normal will discharge the patient, will continue physical therapy while in the hospital. Review of Systems Review of Systems: All systems reviewed & are unremarkable except as noted in HPI and below Exam Narrative: Patient is comfortable, NAD HEENT: eyes ar
[2021-10-18 19:35] VITALS: BP 131/80; PULSE 61; RESP 16; TEMP 36.9; O2SAT 97
[2021-10-18] MEDS: ATORVASTATIN 20 MG TABLET PO (21:11)
[2021-10-18] MEDS: LATANOPROST 0.005% OP SOLN 2.5 ML BTL 1 DROP EACH EYE (21:12)
[2021-10-19] MEDS: oxyCODONE HCL (*CRX) 5 MG TAB IR PO ×3 (01:19→08:37)
[2021-10-19 04:18] VITALS: BP 116/67; PULSE 60; RESP 16; TEMP 36.7; O2SAT 94
[2021-10-19] MEDS: CEPHALEXIN 500 MG CAPSULE PO (05:20)
[2021-10-19] MEDS: ACETAMINOPHEN 500 MG TABLET 1000 MG PO (05:21)
[2021-10-19] MEDS: FAMOTIDINE 20 MG TABLET PO (08:31)
[2021-10-19] MEDS: polyethylene glycoL 3350 17 GM POWD.PACK PO (08:31)
[2021-10-19] MEDS: LOSARTAN POTASSIUM 50 MG TABLET PO (08:32)
[2021-10-19] MEDS: TIMOLOL MALEATE 0.5% OP SOLN 5 ML BOTTLE 1 DROP EACH EYE (08:33)
[2021-10-19] MEDS: SENNA/DOCUSATE SODIUM TABLET 2 TAB PO (08:33)
[2021-10-19] MEDS: CELECOXIB 200 MG CAPSULE PO (08:33)
[2021-10-19] MEDS: APIXABAN 2.5 MG TABLET PO (08:38)
[2021-10-19 08:52] LABS: Anion Gap 7 mmol/L (8-16); Blood Urea Nitrogen 12 mg/dL (9-20); Calcium 8.9 mg/dL (8.4-10.2); Carbon Dioxide 23 mmol/L (22-30); Chloride 104 mmol/L (98-107); Estimated CRCL calculation 114 ml/min; Estimated Glomerular Filt Rate > 60; Glucose 195 mg/dL (65-110); Potassium 4.1 mmol/L (3.4-5.0); Sodium 134 mmol/L (137-145)
--- NOTE | 2021-10-19 11:12 | PM.IMPN ---
Progress Note: A&P Assessment and Plan (1) Hip arthritis: Code(s): M16.10 - Unilateral primary osteoarthritis, unspecified hip Status: Acute Assessment and Plan: Franki Gusman is a 66 year old male patient is 66-year-old male with history of hypertension hyperlipidemia reason for consultation, patient with a severe left hip osteoarthritis over 1 year, conservative management was not relieving his pain if seen by orthopedic surgeon and had a left hip total arthroplasty, currently patient is sitting in the is feeling much denies any chest pain shortness of breath or dizziness, complains of pain in the hip, pain management and DVT prophylaxis is deferred to the surgeon, patient is taking verapamil 90 mg b.i.d. for hypertension currently his blood pressure is soft most likely secondary to anesthesia and pain medication, patient is taking Lipitor for hyperlipidemia, patient remains clinically stable will continue to monitor and will follow the patient with you we thank you for the consultation will monitor the patient. 10/18/2021 interval history: patient status post left hip total arthroplasty postop day 1, patient remains clinically stable has no complaint of chest pain shortness of breath or dizziness, was able to participate in physical therapy, however patient's sodium has dropped 128 today from 139 checked on 09/29/2021 patient has no sinus symptoms hyponatremia, his blood sugar is slightly elevated and his hemoglobin A1c is 5.7, patient states he has been drinking more water while in hospital, we will place patient fluid restriction and monitor his sodium tomorrow remains close to normal will discharge the patient, will continue physical therapy while in the hospital. 10/19/2021 interval history: patient status post left hip total arthroplasty postop day 1, patient remains clinically stable has no complaint of chest pain shortness of breath or dizziness, was able to participate in physical therapy, however patient's sodium has dropped 128 today from 139 checked on 09/29/2021 patient has no sign or symptoms hyponatremia, his blood sugar is slightly elevated and his hemoglobin A1c is 5.7, patient states he has been drinking more water while in hospital, we will place patient fluid restriction and monitor his sodium tomorrow remains close to normal will discharge the patient, will continue physical therapy while in the hospital. patient with hyponatremia most likely patient had drank excess amount of water as patient thirsty because he had been NPO day before for surgery, patient was placed on fluid restriction this morning patient sodium is trending up, he is clinically stable has been discharged by his orthopedic surgeon. (2) Hyperlipidemia: Code(s): E78.5 - Hyperlipidemia, unspecified Status: Acute Assessment and Plan: will continue Lipitor (3) Hypertension: Code(s): I10 - Essential (primary) hypertension Status: Acute Assessment and Plan: patient states taking verapamil 90 mg b.i.d. his blood pressure is soft today most likely secondary to anesthesia and pain medication, no complaint of chest pain will continue to monitor Subjective Date/time seen: 10/19/21 11:12 10/19/2021 interval history: patient status post left hip total arthroplasty postop day 1, patient remains clinically stable has no complaint of chest pain shortness of breath or dizziness, was able to participate in physical therapy, however patient's sodium has dropped 128 today from 139 checked on 09/29/2021 patient has no sign or symptoms hyponatremia, his blood sugar is slightly elevated and his hemoglobin A1c is 5.7, patient states he has been drinking more water while in hospital, we will place patient fluid restriction and monitor his sodium tomorrow remains close to normal will discharge the patient, will continue physical therapy while in the hospital. patient with hyponatremia most likely patient had drank exce
== END 2021-10-19 12:15 | disposition home or self-care (01) ==
LOC: ANHSURGERY 06:52 → ANH2MED 14:38
PROVIDERS: Family Medicine; Physician Assistant Surgical; PCP Internal Medicine; Visit Provider Orthopaedic Surgery
PROC: (CPT 27130; principal; 2021-10-17 07:30)
DX: M16.12 Unilateral primary osteoarthritis, left hip (principal); I10 Essential (primary) hypertension; E78.5 Hyperlipidemia, unspecified; H40.9 Unspecified glaucoma; Z87.891 Personal history of nicotine dependence; E66.9 Obesity, unspecified; Z68.35 Body mass index [BMI] 35.0-35.9, adult
CPT/HCPCS: 27130; 36415; 73501; 80048; 80307; 82040; 83036; 85025; 86850; 86900; 86901; 87070; 93005; 97110; 97116; 97161; 97165; 97530; 97535; A9270; C1776; J0171; J0690; J1040; J1100; J1170; J1885; J2250; J2270; J2405; J2704; J2710; J2795; J3010; J3370; J7120

== ENCOUNTER 2021-11-09 17:49 | Outpatient (NON) | payer OTHER, SELFPAY ==
[2021-11-09 22:16] LABS: Appearance Synovial Fluid Cloudy (Clear); Color Synovial Fluid Yellow (Colorless); Source Synovial Fluid Synovial fluid
[2021-11-09 22:17] LABS: Macrophages Synovial Fluid 2 %; Monocytes Synovial Fluid 8 %; Neutrophils Synovial Fluid 90 % (0-25); Nucleated Cell Synovial Fluid 14139 /uL (0-200); RBC Synovial Fluid 4673 /uL (0-0)
[2021-11-09 22:20] LABS: Crystals Synovial Fluid None Seen (None Seen)
== END 2021-11-09 17:50 | disposition home or self-care (01) ==
LOC: ANHLAB 17:53
PROVIDERS: PCP Internal Medicine; Visit Provider Orthopaedic Surgery
DX: M25.461 Effusion, right knee (principal)
CPT/HCPCS: 87070; 87075; 87205; 89051; 89060

== ENCOUNTER 2021-11-11 07:06 | Outpatient (CLI) | payer OTHER, SELFPAY ==
[2021-11-11 07:54] LABS: Basophils Percent Auto 0.4 % (0.2-1.2); Eosinophils Absolute Auto 0.1 K/mm3 (0-0.3); Eosinophils Percent Auto 1.7 % (0-4.4); Hemoglobin 12.2 g/dL (14.0-18.0); Immature Granulocyte Absolute 0.05 K/mm3 (0.00-0.031); Immature Granulocyte Percent A 0.7 % (0-0.5); Lymphocytes Percent Auto 18.2 % (18.3-44.2); Mean Corpuscular HGB Conc 32.1 g/dl (32-36); Mean Corpuscular Hemoglobin 28.2 pg (26-34); Mean Corpuscular Volume 87.8 fl (80-100); Mean Platelet Volume 8.7 fl (7.4-10.4); Monocytes Absolute Auto 0.8 K/mm3 (0.1-0.6); Monocytes Percent Auto 11.5 % (2.6-8.5); Neutrophils Absolute Auto 4.8 K/mm3 (1.3-6.7); Neutrophils Percent Auto 67.5 % (45.5-73.1); Platelet Count Result 351 k/mm3 (150-375); Red Blood Count 4.33 M/mm3 (4.6-6.20); Red Cell Distribution Width 14.4 % (11.5-14.5); White Blood Count 7.2 K/mm3 (4.5-10.0)
[2021-11-11 08:05] LABS: Rheumatoid Factor < 8.6 IU/ML (<12)
[2021-11-11 08:12] LABS: Anion Gap 10 mmol/L (8-16); Blood Urea Nitrogen 12 mg/dL (9-20); CRP 7.6 mg/dL (<1.0); Calcium 9.1 mg/dL (8.4-10.2); Carbon Dioxide 23 mmol/L (22-30); Chloride 106 mmol/L (98-107); Estimated Glomerular Filt Rate > 60; Glucose 132 mg/dL (65-110); Potassium 4.5 mmol/L (3.4-5.0); Sodium 139 mmol/L (137-145); Uric Acid 4.6 mg/dL (3.5-8.5)
[2021-11-11 08:39] LABS: Erythrocyte Sedimentation Rate 82 mm/hr (0-20)
[2021-11-16 22:50] LABS: Anti Nuclear Antibody Pattern Nuclear, Speckled; Anti Nuclear Antibody Titer 1:40 (Negative)
== END 2021-11-11 07:07 | disposition home or self-care (01) ==
LOC: ANHLAB 07:10
PROVIDERS: PCP Internal Medicine; Visit Provider Orthopaedic Surgery
DX: M25.561 Pain in right knee (principal)
CPT/HCPCS: 36415; 80048; 84550; 85025; 85652; 86038; 86039; 86140; 86430